=== PATIENT | female | born 1960 | race Caucasian/White ===

== ENCOUNTER 2021-07-07 09:12 | Emergency (ER) | payer OTHER ==
[~2021-07-07 09:12] MED LIST: AMBIEN5 MG PO; FEOSOL325 MG PO; GLUCOPHAGE XR500 MG PO; LIPITOR TAB 1010 MG PO; SEROQUEL50 MG PO; TRULICITY0.75 MG/0. SQ
[2021-07-07] MEDS ORDERED: MOBIC15 MG PO (13:05)
[2021-07-07] MEDS ORDERED: CYCLOBENZAPRINE5 MG PO (13:05)
== END 2021-07-07 13:17 | disposition home or self-care (01) ==
LOC: ER1 09:12
DX: S16.1XXA Strain of muscle, fascia and tendon at neck level, initial encounter (principal); S39.012A Strain of muscle, fascia and tendon of lower back, initial encounter; M51.16 Intervertebral disc disorders with radiculopathy, lumbar region; E11.9 Type 2 diabetes mellitus without complications; Z86.718 Personal history of other venous thrombosis and embolism; Z88.8 Allergy status to other drugs, medicaments and biological substances; E04.1 Nontoxic single thyroid nodule; V49.40XA Driver injured in collision with unspecified motor vehicles in traffic accident, initial encounter; Y92.410 Unspecified street and highway as the place of occurrence of the external cause
CPT/HCPCS: 72125; 72131; 73552; 73590; 99284

== ENCOUNTER → 2021-09-10 | Outpatient (CLI) | payer OTHER ==
[~2021-09-10] MED LIST changes: +CYCLOBENZAPRINE5 MG PO; +MOBIC15 MG PO
== END ==
LOC: KOH-I 11:26
DX: M54.50 Low back pain, unspecified (principal); M79.605 Pain in left leg; M47.816 Spondylosis without myelopathy or radiculopathy, lumbar region; M19.09 Primary osteoarthritis, other specified site
CPT/HCPCS: 72100; 73552; 73562; 73590